=== PATIENT | female | born 1935 | race Caucasian/White ===

== ENCOUNTER 2019-09-21 16:32 | Emergency (ER) | payer OTHER, MEDICARE ==
[~2019-09-21] VITALS: Ht 154.9 cm; Wt 72.6 kg
[2019-09-21] MEDS ORDERED: MYSOLINE50 MG PO (16:57)
[2019-09-21] MEDS ORDERED: TAMBOCOR 100 M100 M1 PO (16:57)
[2019-09-21] MEDS ORDERED: LEVO-T25 MCG PO (16:57)
[2019-09-21] MEDS ORDERED: LIPITOR40 MG PO (16:57)
[2019-09-21] MEDS ORDERED: TOPROL XL25 MG PO (16:57)
[2019-09-21] MEDS ORDERED: COUMADIN 5 MG TA5 M1 PO (16:58)
[2019-09-21] MEDS ORDERED: NORVASC5 M1 PO (16:58)
[2019-09-21] MEDS ORDERED: GAS RELIEF 8080 MG PO (16:59)
[2019-09-21] MEDS ORDERED: LORATIDINE 10 M10 M1 PO (16:59)
[2019-09-21] MEDS ORDERED: VITAMIN D3400 UNI2 PO (16:59)
[2019-09-21] MEDS ORDERED: CALCITRATE200 MG PO (17:00)
[2019-09-21] MEDS ORDERED: ZONEGRAN100 MG PO (17:01)
[2019-09-21 17:15] LABS: ABSOLUTE NEUTROPHILS 2.7 thou/uL (1.4-8.2); EOSINOPHILS 3.1 % (0.0-3.0); HEMATOCRIT 42.2 % (37.0-47.0); HEMOGLOBIN 13.7 gm/dL (12.0-15.0); LYMPHOCYTES 43.1 % (24.0-44.0); MCHC 32.4 g/dL (28.0-37.0); MCV 92.8 fL (80.0-100.0); MONOCYTES 8.3 % (1.0-8.0); PLATELET COUNT 259 thou/uL (150-400); POLYS 44.5 % (36.0-66.0); RBC 4.55 mil/uL (4.20-5.00); RDW 14.3 % (10.5-14.5)
[2019-09-21 17:18] LABS: ANION GAP 9 mmol/L (7-16); BUN 22 mg/dL (7-18); CALCIUM 10.3 mg/dL (8.5-10.1); CHLORIDE 102 mmol/L (98-107); CO2 25 mmol/L (21-32); CREATININE 1.2 mg/dL (0.6-1.0); GLUCOSE 113 mg/dL (74-106); POTASSIUM 3.6 mmol/L (3.5-5.1); SODIUM 136 mmol/L (136-145)
[2019-09-21 17:27] LABS: INR 1.8; TROPONIN-I <0.06 ng/mL (<0.06)
[2019-09-21] MEDS ORDERED: TRAMADOL 50 MG50 MG PO (18:21)
[2019-09-21 19:01] VITALS: BP 114/72
--- NOTE | 2019-09-22 11:44 | EKG ---
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: PHIL : 1935 Requested By: David Tomas Order Number: [id number] MD: Idris Elias Measurements Intervals [place] Rate: 101 P: [place]: QRS: 29 QRSD: 103 T: -28 QT: 373 QTc: 484 Interpretive Statements 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
== END 2019-09-21 19:01 | disposition home or self-care (01) ==
LOC: ER 16:32
PROVIDERS: Emergency Medicine
DX: S42.292A Other displaced fracture of upper end of left humerus, initial encounter for closed fracture (principal); Z88.6 Allergy status to analgesic agent; Z88.5 Allergy status to narcotic agent; W18.39XA Other fall on same level, initial encounter; Y93.89 Activity, other specified; Y92.89 Other specified places as the place of occurrence of the external cause; Y99.8 Other external cause status